=== PATIENT | male | born 1995 | race Caucasian/White ===

== ENCOUNTER 2016-11-12 11:03 | Emergency (ER) | payer OTHER ==
[~2016-11-12] VITALS: Ht 195.6 cm; Wt 87.7 kg
[2016-11-12 11:11] VITALS: BP 128/86; PULSE 60; RESP 16; TEMP 97.9; O2SAT 100
[2016-11-12] MEDS ORDERED: traMADol HCL 50 MG TAB PO ONE (11:45)
[2016-11-12] MEDS ORDERED: ONDANSETRON ODT 4 MG TAB PO/SL ONE (11:45)
--- NOTE | 2016-11-12 12:12 | RADHPO ---
EXAM DATE/TIME: 11/12/2016 11:37 [facility] COMPARISON: No previous studies available for comparison. INDICATIONS : Cephalgia. Visual disturbance. RADIATION DOSE: 68.09 CTDIvol (mGy) MEDICAL HISTORY : None SURGICAL HISTORY : None. ENCOUNTER: Initial ACUITY: 1 day PAIN SCALE: 6/10 LOCATION: Cranial TECHNIQUE: Multiple contiguous axial images were obtained of the head. Using automated exposure control and adj ustment of the mA and/or kV according to patient size, radiation dose was kept as low as reasonably a chievable to obtain optimal diagnostic quality images. FINDINGS: There is a small focal area of increased density in the anterior cerebral artery cistern that could b e a small aneurysm. There is no subarachnoid hemorrhage identified. There are no extraaxial fluid collections appreciate d. Posterior fossa is unremarkable. CONCLUSION: Abnormal Ct scan of the brain as described above. Marquise Causey MD FACR on November 12, 2016 at 11:59 Board Certified Radiologist. This report was verified electronically.
[2016-11-12] MEDS ORDERED: ONDANSETRON ODT 4 MG TAB PO ONE (12:15)
--- NOTE | 2016-11-12 12:48 | PD ---
HPI Chief Complaint: Headache Time Seen by Provider: 11:27 Travel History International Travel<30 days: No Contact w/Intl Traveler<30days: No Traveled to known affect area: No History of Present Illness HPI HAS H/O HEADACHES, AND USUALLY MOTRIN RESOLVES IT BUT THIS ONE IS STILL LINGERING, PER PT HAS NOT HAD AN ACTUAL WORKUP FOR THESE HEADACHES PFSH Past Medical History Medical History: Denies Significant Hx Tetanus Vaccination: < 5 Years Influenza Vaccination: No Past Surgical History Surgical History: No Previous Surgery Social History Alcohol Use: No Tobacco Use: No Substance Use: No Allergies-Medications (Allergen,Severity, Reaction): Coded Allergies: No Known Allergies (Unverified , 11/12/16) Reported Meds & Prescriptions Reported Meds & Active Scripts Active No Active Prescriptions or Reported Medications Review of Systems Except as stated in HPI: all other systems reviewed are Neg HENT: Positive: Headaches Physical Exam Narrative GENERAL: SKIN: Warm and dry. HEAD: Atraumatic. Normocephalic. EYES: Pupils equal and round. No scleral icterus. No injection or drainage. ENT: No nasal bleeding or discharge. Mucous membranes pink and moist. NECK: Trachea midline. No JVD. CARDIOVASCULAR: Regular rate and rhythm. RESPIRATORY: No accessory muscle use. Clear to auscultation. Breath sounds equal bilaterally. GASTROINTESTINAL: Abdomen soft, non-tender, nondistended. Hepatic and splenic margins not palpable. MUSCULOSKELETAL: Extremities without clubbing, cyanosis, or edema. No obvious deformities. NEUROLOGICAL: Awake and alert. No obvious cranial nerve deficits. Motor grossly within normal limits. Five out of 5 muscle strength in the arms and legs. Normal speech. PSYCHIATRIC: Appropriate mood and affect; insight and judgment normal. Data Data Last Documented VS Vital Signs Date Time Temp Pulse Resp B/P Pulse Ox O2 Delivery O2 Flow Rate FiO2 11/12/16 14:25 55 14 141/75 99 Room Air 11/12/16 11:[address] Brain W/O Iv Contrast(Rout) (11/12/16 11:34) Ondansetron Odt (Zofran Odt) (11/12/16 11:45) Tramadol (Ultram) (11/12/16 11:45) Ondansetron Odt (Zofran Odt) (11/12/16 12:15) Mri Brain W&W/O Contrast (11/12/16 ) Mra Brain W/O Contrast (Cow) (11/12/16 ) Basic Metabolic Panel (Bmp) (11/12/16 12:56) Iv Access Insert/Monitor (11/12/16 12:57) Labs Laboratory Tests Test 11/12/16 13:00 Sodium Level 142 MEQ/L Potassium Level 3.8 MEQ/L Chloride Level 105 MEQ/L Carbon Dioxide Level 28.2 MEQ/L Anion Gap 9 MEQ/L Blood Urea Nitrogen 10 MG/DL Creatinine 0.96 MG/DL Estimat Glomerular Filtration 100 ML/MIN Rate Random Glucose 97 MG/DL Calcium Level 8.8 MG/DL [facility] Medical Decision Making Medical Screen Exam Complete: Yes Emergency Medical Condition: Yes Medical Record Reviewed: Yes Differential Diagnosis TENSION RAMIREZ V ICH Narrative Course PATIENT IS NEUROLOGICALLY INTACT THUS FAR, MINIMAL PAIN AND NOW HAS SOME NAUSEA BUT FEELS WELL OTHERWISE. ON INITIAL CT BRAIN ? ANT COMM LESION? POSS ANEURYSM? ? 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 WITHOUT ANY HISTORY, WHICH WILL FURTHER DELAY STUDIES. AT 1500 MRI/MRA ARE NEGATIVE FOR ANEURYSM PER RADIOLOGIST Diagnosis Primary Impression: Headache Qualified Code: R51 - Acute nonintractable headache, unspecified headache type Patient Instructions: Acute Headache (ED), General Instructions Scripts Ondansetron Odt (Zofran Odt)4 Mg Tab4 Mg SL Q6HR PRN (Nausea/Vomiting) #30 TAB Ref 0 Prov:Chadwick Mariano MD 11/12/16 Xjfdtkgztc-Anehwvdkiejhg-Qnpwryox (Fioricet)50-300-40 Mg Cap1 Cap PO Q4H PRN ( HEADACHE) #15 CAP Ref 0 Prov:Chadwick Mariano MD 11/12/16 Disposition: 01 DISCHARGE HOME Condition: Stable Chadwick Mariano MD Nov 12, 2016 12:48
[2016-11-12 13:21] LABS: POTASSIUM 3.8 MEQ/L (3.5-5.1)
[2016-11-12 13:24] LABS: BICARBONATE 28.2 MEQ/L (21.0-32.0)
[2016-11-12] MEDS ORDERED: GADODIAMIDE PF 287 MG/ML 20 ML VIAL (for RAD MRI) IV ONE (14:00)
--- NOTE | 2016-11-12 14:21 | RADHPO ---
EXAM DATE/TIME: 11/12/2016 13:46 [facility] COMPARISON: No previous studies available for comparison. INDICATIONS : Cephalgia. Tunnel vision with flashing lights and nausea. MEDICAL HISTORY : None. SURGICAL HISTORY : None. ENCOUNTER: Initial ACUITY: 1 day PAIN SCORE: 3/10 LOCATION: cranial Please note a normal MRA of the brain does not entirely exclude the possibility of a small aneurysm, nor the possibility of distal intracranial vessel disease. TECHNIQUE: 3D time of flight MRA was performed. Source images, multiplanar STS MIP, and 3D volume MIP reconstru ctions were reviewed. FINDINGS: Both distal internal carotid arteries are widely patent. The basilar is widely patent. There is a hypoplastic A1 segment on the right. The anterior and middle cerebral circulation is other chambers within normal limits. The posterior circulation is widely patent. CONCLUSION: 1. Hypoplastic A1 segment on the right. Examination is otherwise within normal limits. Beto Causey MD on November 12, 2016 at 14:18 Board Certified Radiologist. This report was verified electronically.
[2016-11-12 14:25] VITALS: BP 141/75; PULSE 55; RESP 14; O2SAT 99
--- NOTE | 2016-11-12 14:54 | RADHPO ---
EXAM DATE/TIME: 11/12/2016 13:46 [facility] COMPARISON: No previous studies available for comparison. INDICATIONS : Cephalgia. Tunnel vision with flashing lights and nausea. CONTRAST: 17 cc Omniscan (gadodiamide) IV MEDICAL HISTORY : None. SURGICAL HISTORY : None. ENCOUNTER: Initial ACUITY: 1 day PAIN SCORE: 3/10 LOCATION: cranial TECHNIQUE: Multiplanar, multisequence MRI of the brain was performed both prior to and following the administrat ion of paramagnetic contrast. FINDINGS: CEREBRUM: The ventricles are normal for age. No evidence of midline shift, mass lesion, hemorrhage or acute in farction. No extraaxial fluid collections are seen. The pituitary gland and suprasellar cistern are normal in configuration. WHITE MATTER: No significant signal abnormalities are seen in the white matter. POSTERIOR FOSSA: The cerebellum and brainstem are intact. The 4th ventricle is midline. The cerebellopontine angle is unremarkable. The cerebellar tonsils are normal in position. DIFFUSION IMAGING: No focal areas of restricted diffusion are seen. No evidence of acute infarction. EXTRACRANIAL: The visualized portions of the orbits and paranasal sinuses are unremarkable. POST-CONTRAST: No abnormal areas of parenchymal or dural enhancement. No evidence of blood-brain barrier breakdown. CONCLUSION: 1. Negative examination. Beto Causey MD on November 12, 2016 at 14:35 Board Certified Radiologist. This report was verified electronically.
[2016-11-12] MEDS ORDERED: BUTA1CAP PO (15:06)
[2016-11-12] MEDS ORDERED: ZOFR4TAB3 SL (15:06)
[2016-11-12 15:29] VITALS: BP 152/69
== END 2016-11-12 15:31 | disposition home or self-care (01) ==
LOC: PHED 11:03
DX: R51 Headache (principal)
CPT/HCPCS: 70450; 70544; 70553; 80048; 99285; A9579